=== PATIENT | male | born 1965 | race Caucasian/White ===

== ENCOUNTER 2020-10-11 18:08 | Emergency (ER) | payer BC ==
[~2020-10-11] VITALS: Ht 167.6 cm; Wt 98.6 kg
--- NOTE | 2020-10-11 19:31 | NUR ---
PT AMBULATORY TO ROOM 36 W/ C/O COUGH, CP/SOB STARTED TODAY. PT STATES HE WAS DX W/ COVID FRIDAY AND STARTED HAVING WORSENING SX AND WANTS TO BE SEEN. PT STATES IF ADMITTED AT [facility] W/ COVID AT THIS TIME. PT RESTING ON GERBER. GHASSAN. MONITORS APPLIED. VSS.
[2020-10-11 19:32] VITALS: BP 136/92
--- NOTE | 2020-10-11 19:35 | NUR ---
Pt getting PCXR now.
--- NOTE | 2020-10-11 19:36 | NUR ---
REPORT GIVEN TO NAVID PORRAS.
--- NOTE | 2020-10-11 20:01 | NUR ---
NAD, waiting for ERP re-eval and dispo.
== END 2020-10-11 21:12 | disposition home or self-care (01) ==
LOC: ED 18:38
DX: U07.1 COVID-19 (principal); J06.9 Acute upper respiratory infection, unspecified; R07.89 Other chest pain; R05 Cough
CPT/HCPCS: 71045; 99283